=== PATIENT | female | born 1965 | race Two or more races ===

== ENCOUNTER 2023-12-28 10:39 | Emergency (ER) | payer BC ==
[~2023-12-28] VITALS: Ht 154.9 cm; Wt 54.4 kg
[2023-12-28 12:36] LABS: PH,URINE 5.5 (5.0-8.0); URINE APPEARANCE Clear; URINE BILIRRUBIN Small (NEGATIVE); URINE BLOOD Small; URINE COLOR Dark Yellow; URINE GLUCOSE Negative (NEGATIVE); URINE LEUKOCYTE Trace; URINE NITRATE Negative; URINE PROTEIN 30 (NEGATIVE)
[2023-12-28 12:37] LABS: HEMATOCRIT 33.3 % (36.0-45.00); HEMOGLOBIN 11.4 g/dL (12.0-15.00); MEAN CELL VOLUME 108.2 fL (80.00-100.00); MEAN CORPUSCULAR HEMOGLOBIN 37.2 pg (27.00-32.0); MEAN CORPUSCULAR HGB CONC 34.3 g/dl (32.0-36.0); RED BLOOD COUNT 3.08 M/uL (4.00-6.00); RED CELL DISTRIBUTION WIDTH 13.8 % (11.5-14.5)
[2023-12-28 12:39] LABS: CALCIUM 9.3 mg/dL (8.5-10.1); CREATININE SERUM 0.8 mg/dL (0.55-1.02); GFR 73.67; POTASSIUM 3.87 mEq/L (3.5-5.1)
[2023-12-28 12:40] LABS: URINE EPITHELIAL CELLS 35.2 uL (0.0-38.8); URINE RBC 77.3 uL (0.0-20.8); URINE WBC 11.5 uL (0.0-23.2)
[2023-12-28 12:42] LABS: PLATELET COUNT 83 K/uL (150-450)
[2023-12-28 12:51] LABS: URINE CRYSTALS FEW /HPF; URINE MUCUS MODERATE
== END 2023-12-28 13:44 | disposition home or self-care (01) ==
LOC: ER 10:40
PROVIDERS: General Practice
DX: B34.9 Viral infection, unspecified (principal); R07.89 Other chest pain; Z20.822 Contact with and (suspected) exposure to COVID-19

== ENCOUNTER → 2023-12-30 | Emergency (ER) | payer BC | END | disposition left against medical advice (07) | LOC: ER 15:51 | DX: Z53.21 Procedure and treatment not carried out due to patient leaving prior to being seen by health care provider (principal) ==

== ENCOUNTER 2024-01-06 11:56 | Inpatient (IN) | payer BC ==
[~2024-01-06] VITALS: Ht 162.6 cm; Wt 68.0 kg
[2024-01-06] MEDS ORDERED: FAMOTIDINE/PF 20 MG in 0.9 % SODIUM CHLORIDE 8 ML IV PUSH STA (13:28)
[2024-01-06] MEDS ORDERED: 0.9 % SODIUM CHLORIDE 1,000 ML IV SCH ×2 (13:30→19:45)
[2024-01-06] MEDS ORDERED: ONDANSETRON HCL 2 MG/ML VIAL IV ONE (13:30)
[2024-01-06 14:33] LABS: ALBUMIN 3.6 gm/dL (3.4-5.0); BILIRUBIN TOTAL 0.42 mg/dL (0.3-1.2); CALCIUM 9.5 mg/dL (8.5-10.1); CREATININE SERUM 0.8 mg/dL (0.55-1.02); GFR 73.67; GLOBULINA 3.9 G/DL (2.4-3.5); POTASSIUM 4.4 mEq/L (3.5-5.1); TOTAL PROTEIN 7.5 gm/dL (6.4-8.2)
[2024-01-06] MEDS ORDERED: BUTALB/ACETAMINOPHEN/CAFFEINE 1 TAB TABLET PO ONE (14:45)
[2024-01-06 15:07] LABS: HEMATOCRIT 31.4 % (36.0-45.00); HEMOGLOBIN 10.8 g/dL (12.0-15.00); MEAN CELL VOLUME 108.3 fL (80.00-100.00); MEAN CORPUSCULAR HEMOGLOBIN 37.3 pg (27.00-32.0); MEAN CORPUSCULAR HGB CONC 34.4 g/dl (32.0-36.0)
[2024-01-06 15:11] LABS: PLATELET COUNT 73 K/uL (150-450)
[2024-01-06] MEDS ORDERED: PANTOPRAZOLE SODIUM 40 MG/VIAL VIAL IV SCH (19:47)
[2024-01-06] MEDS ORDERED: ACETAMINOPHEN 500 MG GEL..CAP PO PRN (20:00)
[2024-01-06] MEDS ORDERED: ONDANSETRON HCL 4 MG in 0.9 % SODIUM CHLORIDE 50 ML IV PRN (20:00)
[2024-01-06 20:57] LABS: ERYTHROCYTE SEDIMENTATION RATE 60 mm/hr; PLT IN CITRATE 73 K/uL (150-450)
[2024-01-06 22:01] LABS: INR 1.06; PROTHROMBIN TIME 11.1 SECONDS (9.0-11.5)
[2024-01-06 22:01] LABS: PH,URINE 5.5 (5.0-8.0); URINE APPEARANCE Clear; URINE BILIRRUBIN Negative (NEGATIVE); URINE BLOOD Small; URINE COLOR Yellow; URINE GLUCOSE Negative (NEGATIVE); URINE LEUKOCYTE Negative; URINE NITRATE Negative; URINE PROTEIN Negative (NEGATIVE)
[2024-01-06 22:02] LABS: PARTIAL THROMBOPLASTIN TIME 29.3 SECONDS (22.0-34.0)
[2024-01-06 22:04] LABS: URINE BACTERIA 301.1 uL (0.0-1933); URINE EPITHELIAL CELLS 17.7 uL (0.0-38.8); URINE RBC 19.4 uL (0.0-20.8); URINE WBC 7.4 uL (0.0-23.2)
[2024-01-07] MEDS ORDERED: METHYLPREDNISOLONE SOD SUCC 40 MG VIAL IV SCH (01:00)
[2024-01-07 07:30] LABS: T4 FREE 1.09 NG/ML (0.76-1.46); TSH 0.386 uIU/mL (0.358-3.74)
[2024-01-07] MEDS ORDERED: IRON FUM,PS/FOLIC/BCOMP,C NO.9 1 CAP CAPSULE PO SCH (09:00)
[2024-01-07 09:07] LABS: HEMATOCRIT 28.1 % (36.0-45.00); HEMOGLOBIN 9.7 g/dL (12.0-15.00); MEAN CELL VOLUME 107.1 fL (80.00-100.00); MEAN CORPUSCULAR HEMOGLOBIN 36.8 pg (27.00-32.0); MEAN CORPUSCULAR HGB CONC 34.4 g/dl (32.0-36.0); RED BLOOD COUNT 2.62 M/uL (4.00-6.00); RED CELL DISTRIBUTION WIDTH 13.8 % (11.5-14.5)
[2024-01-07 09:08] LABS: PLATELET COUNT 62 K/uL (150-450)
[2024-01-07 13:06] LABS: PLATELET ESTIMATE DECREASED (NORMAL)
[2024-01-08 07:21] LABS: HEMATOCRIT 28.6 % (36.0-45.00); HEMOGLOBIN 9.9 g/dL (12.0-15.00); MEAN CELL VOLUME 107.9 fL (80.00-100.00); MEAN CORPUSCULAR HEMOGLOBIN 37.4 pg (27.00-32.0); MEAN CORPUSCULAR HGB CONC 34.7 g/dl (32.0-36.0); RED BLOOD COUNT 2.65 M/uL (4.00-6.00); RED CELL DISTRIBUTION WIDTH 13.8 % (11.5-14.5)
[2024-01-08 08:23] LABS: PLATELET COUNT 65 K/uL (150-450)
[2024-01-08] MEDS ORDERED: LORazepam 2 MG/ML VIAL IV PUSH STA (18:39)
[2024-01-08] MEDS ORDERED: KETOROLAC TROMETHAMINE 30 MG VIAL IV STA (18:39)
[2024-01-08] MEDS ORDERED: METHYLPREDNISOLONE SOD SUCC 40 MG VIAL IV SCH (21:00)
[2024-01-09 07:21] LABS: HEMATOCRIT 25.6 % (36.0-45.00); MEAN CELL VOLUME 108.6 fL (80.00-100.00); MEAN CORPUSCULAR HGB CONC 34.6 g/dl (32.0-36.0); RED BLOOD COUNT 2.36 M/uL (4.00-6.00); RED CELL DISTRIBUTION WIDTH 13.6 % (11.5-14.5)
[2024-01-09 08:29] LABS: MEAN CORPUSCULAR HEMOGLOBIN 37.7 pg (27.00-32.0)
[2024-01-09 08:30] LABS: HEMOGLOBIN 8.9 g/dL (12.0-15.00)
[2024-01-09 08:48] LABS: PLATELET COUNT 58 K/uL (150-450)
[2024-01-10 10:23] LABS: HEMATOCRIT 26.4 % (36.0-45.00); MEAN CELL VOLUME 108.4 fL (80.00-100.00); MEAN CORPUSCULAR HEMOGLOBIN 37.2 pg (27.00-32.0); MEAN CORPUSCULAR HGB CONC 34.3 g/dl (32.0-36.0); RED BLOOD COUNT 2.43 M/uL (4.00-6.00); RED CELL DISTRIBUTION WIDTH 13.6 % (11.5-14.5)
[2024-01-10 11:47] LABS: PLATELET COUNT 48 K/uL (150-450)
[2024-01-11 12:11] LABS: HEMATOCRIT 35.7 % (36.0-45.00); HEMOGLOBIN 12.4 g/dL (12.0-15.00); MEAN CELL VOLUME 101.3 fL (80.00-100.00); MEAN CORPUSCULAR HEMOGLOBIN 35.3 pg (27.00-32.0); MEAN CORPUSCULAR HGB CONC 34.8 g/dl (32.0-36.0); RED BLOOD COUNT 3.52 M/uL (4.00-6.00)
[2024-01-11 13:28] LABS: PLATELET COUNT 61 K/uL (150-450)
[2024-01-11 13:57] LABS: RED CELL DISTRIBUTION WIDTH 16.9 % (11.5-14.5)
== END 2024-01-11 12:14 | disposition designated cancer center or children's hospital (05) | DRG 813 ==
LOC: ER 11:56 → MEDJ 20:00
PROVIDERS: General Practice; Internal Medicine; Internal Medicine Hematology & Oncology; ADMIT Internal Medicine; ATTEND Internal Medicine
PROC: BW40ZZZ Ultrasonography of Abdomen (ICD-10-PCS; 2024-01-06)
PROC: 30233N1 Transfusion of Nonautologous Red Blood Cells into Peripheral Vein, Percutaneous Approach (ICD-10-PCS; principal; 2024-01-10)
DX: D69.6 Thrombocytopenia, unspecified (principal); A90 Dengue fever [classical dengue]; C92.00 Acute myeloblastic leukemia, not having achieved remission; D61.818 Other pancytopenia; D46.9 Myelodysplastic syndrome, unspecified